=== PATIENT | male | born 1965 | race Caucasian/White ===

== ENCOUNTER → 2023-12-08 08:12 | Outpatient (REF) | payer OTHER, SELFPAY | LOC: DHCBC HW 08:12 | PROVIDERS: ATTENDING PHYSICIAN Nurse Practitioner; FAMILY PHYSICIAN Internal Medicine | DX: I35.0 Nonrheumatic aortic (valve) stenosis (principal) | CPT/HCPCS: 93306 ==

== ENCOUNTER → 2025-03-26 07:09 | Outpatient (REF) | payer OTHER, SELFPAY | LOC: HWRAD 07:09 | PROVIDERS: ATTENDING PHYSICIAN Internal Medicine Hematology & Oncology; FAMILY PHYSICIAN Internal Medicine | DX: E83.110 Hereditary hemochromatosis (principal); E55.9 Vitamin D deficiency, unspecified | CPT/HCPCS: 76700 ==